=== PATIENT | male | born 1975 | race Two or more races ===

== ENCOUNTER 2017-10-18 13:32 | Emergency (ER) | payer MEDICAID ==
[~2017-10-18] VITALS: Ht 188 cm; Wt 86.0 kg
[2017-10-18 14:17] LABS: CLARITY URINE CLEAR (CLEAR); COLOR URINE YELLOW (YELLOW); KETONES URINE NEGATIVE (NEGATIVE); LEUKOCYTE ESTERASE URINE NEGATIVE (NEGATIVE); NITRITE URINE NEGATIVE (NEGATIVE); OCCULT BLOOD URINE NEGATIVE (NEGATIVE); PROTEIN URINE NEGATIVE (NEGATIVE); SPECIFIC GRAVITY URINE 1.009 (1.005-1.030); UROBILINOGEN URINE 0.2 E.U./dL (0.2-1.0)
[2017-10-18] MEDS ORDERED: ACETAMINOPHEN 500MG TABLET PO ONE (16:15)
[2017-10-18] MEDS ORDERED: IBUPROFEN 400MG TABLET PO ONE (16:15)
[2017-10-18 16:50] LABS: CHLORIDE 108 mEq/L (98-107)
[2017-10-18 16:51] LABS: BASOPHILS % 0.5 % (0.0-2.0); EOSINOPHILS % 2.4 % (0.0-5.0); HEMATOCRIT. 41.2 % (42.0-52.0); HEMOGLOBIN. 13.7 g/dL (14.0-18.0); LYMPHOCYTES % 21.6 % (20.0-50.0); MEAN CORPUSCULAR HEMOGLOBIN 28.3 pg (28.0-32.0); MEAN CORPUSCULAR VOLUME 85.3 fL (80.0-94.0); MEAN PLATELET VOLUME 10.1 fl (7.4-10.4); MONOCYTES % 12.6 % (2.0-8.0); NEUTROPHILS % 62.9 % (40.0-76.0); PLATELET 161 x1000/uL (130-400); RED BLOOD CELL COUNT 4.83 mill/uL (4.7-6.1); RED CELL DISTRIBUTION WIDTH 13.5 % (11.6-14.6)
[2017-10-18 16:59] LABS: CARBON DIOXIDE 28 mEq/L (21-32)
[2017-10-18 18:18] VITALS: BP 113/68
== END 2017-10-18 18:21 | disposition home or self-care (01) ==
LOC: ER 14:00
DX: M54.5 Low back pain (principal); R10.9 Unspecified abdominal pain; F17.200 Nicotine dependence, unspecified, uncomplicated; F12.10 Cannabis abuse, uncomplicated
CPT/HCPCS: 36415; 80053; 81003; 85025; 99284

== ENCOUNTER 2018-04-22 23:06 | Emergency (ER) | payer MEDICAID ==
[~2018-04-22] VITALS: Ht 188 cm; Wt 85.3 kg
[2018-04-23] MEDS ORDERED: IBUPROFEN 600MG TABLET PO ONE (03:00)
[2018-04-23] MEDS ORDERED: AMOXICILLIN/POTASSIUM CLAVULANATE 875/125MG TAB PO ONE (03:00)
[2018-04-23] MEDS ORDERED: TETANUS, DIPHTHERIA, PERTUSSIS VAC/PF 0.5ML (>7YR OLD) IM ONE (03:00)
[2018-04-23] MEDS ORDERED: LIDOCAINE HCL 1% 20ML VIAL (Pyxis) INJ MC ONE (03:00)
[2018-04-23] MEDS ORDERED: BACITRACIN ZINC OINT UDPKT TOP ONE (03:00)
[2018-04-23 03:30] VITALS: BP 137/78
== END 2018-04-23 05:32 | disposition home or self-care (01) ==
LOC: ER 04-23 04:07
DX: S01.312A Laceration without foreign body of left ear, initial encounter (principal); F17.200 Nicotine dependence, unspecified, uncomplicated; Y04.1XXA Assault by human bite, initial encounter; Y93.89 Activity, other specified; Y92.9 Unspecified place or not applicable
CPT/HCPCS: 12013; 90471; 90715; 99283; J3490; Z7610

== ENCOUNTER 2018-04-29 10:06 | Emergency (ER) | payer MEDICAID ==
[~2018-04-29] VITALS: Ht 188 cm; Wt 84.7 kg
[2018-04-29 10:16] VITALS: BP 116/69
== END 2018-04-29 10:35 | disposition home or self-care (01) ==
LOC: ER 10:06
DX: S00.4 Superficial injury of ear (principal); F12.10 Cannabis abuse, uncomplicated; F17.200 Nicotine dependence, unspecified, uncomplicated; W50.3XXD Accidental bite by another person, subsequent encounter
CPT/HCPCS: 99283

== ENCOUNTER 2019-03-17 10:27 | Emergency (ER) | payer MEDICAID ==
[~2019-03-17] VITALS: Ht 188 cm; Wt 77.0 kg
[2019-03-17 11:45] VITALS: BP 110/72
== END 2019-03-17 12:01 | disposition home or self-care (01) ==
LOC: ER 10:27
DX: L03.317 Cellulitis of buttock (principal); F12.10 Cannabis abuse, uncomplicated; Z98.890 Other specified postprocedural states
CPT/HCPCS: 99283

== ENCOUNTER 2019-03-24 12:32 | Emergency (ER) | payer MEDICAID ==
[~2019-03-24] VITALS: Ht 188 cm; Wt 82.0 kg
[2019-03-24 12:53] VITALS: BP 114/73
== END 2019-03-24 13:50 | disposition left against medical advice (07) ==
LOC: ER 12:32
DX: L02.31 Cutaneous abscess of buttock (principal); Z53.21 Procedure and treatment not carried out due to patient leaving prior to being seen by health care provider

== ENCOUNTER 2021-01-28 00:25 | Emergency (ER) | payer MEDICAID ==
[~2021-01-28] VITALS: Ht 188 cm; Wt 82.0 kg
[2021-01-28 01:00] VITALS: BP 129/83
[2021-01-28] MEDS ORDERED: IBUPROFEN 600MG TABLET PO ONE (01:00)
[2021-01-28] MEDS ORDERED: LIDOCAINE HCL/PF 1% 10 MG/ML 5ML VIAL IJ ONE (01:00)
[2021-01-28] MEDS ORDERED: BACITRACIN ZINC OINT UDPKT TOP ONE (01:00)
[2021-01-28] MEDS ORDERED: BO1 TP (01:23)
[2021-01-28] MEDS ORDERED: IBUP-2029 MT (01:23)
== END 2021-01-28 01:30 | disposition home or self-care (01) ==
LOC: ER 00:25
DX: S01.312A Laceration without foreign body of left ear, initial encounter (principal); W25.XXXA Contact with sharp glass, initial encounter; Y93.9 Activity, unspecified; Y92.89 Other specified places as the place of occurrence of the external cause
CPT/HCPCS: 12011; 99282; A4217; J3490; Z7610

== ENCOUNTER 2021-02-09 09:13 | Emergency (ER) | payer MEDICAID ==
[~2021-02-09] VITALS: Ht 188 cm; Wt 81.0 kg
[~2021-02-09 09:13] MED LIST: BO1 TP; IBUP-2029 MT
[2021-02-09 10:54] VITALS: BP 117/72
== END 2021-02-09 10:56 | disposition home or self-care (01) ==
LOC: ER 09:13
DX: Z48.02 Encounter for removal of sutures (principal)
CPT/HCPCS: 99281